=== PATIENT | female | born 1955 | race Caucasian/White ===

== ENCOUNTER 2017-09-14 19:36 | Inpatient (IN) | END 2017-09-19 19:10 | disposition home or self-care (01) | DRG 392 ==

== ENCOUNTER 2017-09-30 16:25 | Outpatient (CLI) | END 2017-09-30 16:42 | disposition home or self-care (01) ==

== ENCOUNTER 2018-09-25 01:33 | Emergency (ER) | payer OTHER ==
[~2018-09-25] VITALS: Ht 152.4 cm; Wt 57.7 kg
[~2018-09-25 01:33] MED LIST: BACL10TA PO; LEVE500T8 GTB
[2018-09-25 01:37] VITALS: BP 157/97; PULSE 85; RESP 16; Ht 152.4 cm; Wt 57.7 kg
[2018-09-25] MEDS ORDERED: HYDR-4011 PO (02:52)
[2018-09-25] MEDS ORDERED: NAPR-985 PO (02:52)
--- NOTE | 2018-09-25 02:59 | ERD ---
ER Documentation Chief Complaint Chief Complaint Pt has hx of arthritis and hands are hurting worse HPI This is a 63-year-old female with a history of arthritis, seizures, depression, who presents ED with complaints of worsening arthritic pain of the hands. Patient has an appointment scheduled with her primary care physician in 5 days. Patient states that she takes naproxen and [place] for her pain. Denies fever, chills, chest pain, shortness of breath, trouble breathing, nausea, vomiting, diarrhea, constipation, tingling, numbness, lack sensation in all other sympt oms. ROS All systems reviewed and are negative except as per history of present illness. Medications Home Meds Active Scripts Hydrocodone/Acetaminophen (Attica 5-325 Tablet) 1 Each Tablet, 1 TAB PO Q6H PRN for PAIN, #10 TAB Prov:MARY BRAR PA-C 09/25/18 Naproxen* (Naprosyn*) 500 Mg Tablet, 500 MG PO BID PRN for PAIN AND/OR INFLAMMATION, #30 TAB Prov:MARY BRAR PA-C 09/25/18 Baclofen* (Baclofen*) 10 Mg Tablet, 10 MG PO TID, #90 TAB Prov:SHERITA CISSE NP 09/19/17 Reported Medications Levetiracetam* (Levetiracetam*) 500 Mg Tablet, 1000 MG GTB BID, #360 09/14/17 Allergies Allergies: Coded Allergies: codeine (Verified Allergy, Unknown, 09/14/17) PMhx/Soc History of Surgery: Yes (HYSTERECTOMY) Anesthesia Reaction: No Hx Neurological Disorder: Yes (SEIZURE) Hx Respiratory Disorders: No Hx Cardiac Disorders: No Hx Psychiatric Problems: Yes (DEPRESSION) Hx Miscellaneous Medical Probl: Yes (pls see EMR) Hx Alcohol Use: Yes Hx Substance Use: No Hx Tobacco Use: No FmHx Family History: No diabetes Physical Exam Vitals Vital Signs Date Temp Pulse Resp B/P (MAP) Pulse Ox O2 O2 Flow FiO2 Time Delivery Rate 09/25/18 98.6 85 16 157/97 100 01:37 (117) Physical Exam Physical Exam Vitals signs: Reviewed by me. General: Well developed, well nourished, in no acute distress. Patient is awake and alert. Head: Normocephalic, atraumatic. Eyes: Normal conjunctiva, Pupils PERRLA, EOM intact grossly ENT: Pharynx is clear, Moist mucous membranes, external ears, nose and mouth normal Neck: Supple, no masses, lymphadenopathy or JVD Respiratory: Clear to auscultation bilaterally with no wheezing, rhonchi, rales, no distress Cardiovascular: RRR, no murmurs, rubs, or gallops MSK: No edema, no unilateral swelling, 5/5 strength, good oil gas and pipe tester strength Back: No midline tenderness. Neurologic: Alert and oriented, moving all extremities, normal speech, no focal weakness, no cerebellar signs. Normal mentation Skin: warm and dry, No rash Psych: Normal mood Results 24 hrs Current Medications Medications Dose Sig/Nile Start Time Status Last (Trade) Ordered Route PRN Stop Time Admin Dose Reason Admin 1 tab ONCE ONCE 09/25/18 Acetaminophen PO 03:00 / 09/25/18 03:01 Hydrocodone Bitart (Attica (5/325)) Naproxen 500 mg ONCE ONCE 09/25/18 (Naprosyn) PO 03:00 09/25/18 03:01 Procedures/MDM ER COURSE: The patient was given norco and naproxen The medication was well tolerated and the patient reports improvement in symptoms. The patient was stable throughout ED course. I kept the patient and/or family informed of laboratory and diagnostic imaging results throughout the emergency room course. The patient was promptly evaluated and a treatment plan was devised based on H&P and other data. This plan was discussed with the patient who agreed and had no further questions or concerns prior to discharge. MEDICAL DECISION MAKING: This is a 63-year-old female presents ED with complaints of worsening arthritic pain of the hands. Patient was given naproxen and Att[place] in the emergency department. I looked patient up in the [facility] database and the last refill of her pain medication that she got was on June 26, 2017. Patient has a appointment scheduled with her primary care physician in 5 days. Patient was given 10 pills of Attica as well as a refill of the naproxen. Patient was advised to follow-up with pain management. History and physical examination other data not consistent with emergent processes including but not limited to fracture, dislocation, tendon rupture, ischemia, neurovascular injury, compartment syndrome, septic joint, avascular necrosis, osteomyelitis, necrotizing fasciitis, septic joint, septic arthritis, or other emergent conditions. Patient's vitals are stable and can be managed outpatient with close follow-up. Advised patient to follow-up with primary care in the next 48 hours. Return to ED with any worsening symptoms. DISPOSITION PLAN: We discussed follow up with the patient's primary care doctor within 24 to 48 hours. Patient counseled regarding my diagnostic impression and care plan. Prior to discharge all questions answered. Pt agrees with treatment plan and understands strict return precautions. Precautionary instructions provided including instructions to return to the ER if not improving or for any worsening or changing symptoms or concerns. SPECIALIST FOLLOW UP RECOMMENDED: Pain management Patient has been advised to follow up with primary care in 1-2 days. Disclaimer: Inadvertent spelling and grammatical errors are likely due to EHR/dictation software use and do not reflect on the overall quality of patient care. Also, please note that the electronic time recorded on this note does not necessarily reflect the actual time of the patient encounter. Departure Diagnosis: Primary Impression: Pain, hand Laterality: bilateral Qualified Codes: M79.641 - Pain in right hand; M79.642 - Pain in left hand Condition: Stable Patient Instructions: What Is Arthritis? Referrals: KANU FELICIANO MD, ANTHONY Jr., MD SCHLESINGER, MARK P. MD [facility] YOU HAVE RECEIVED A MEDICAL SCREENING EXAM AND THE RESULTS INDICATE THAT YOU DO NOT HAVE A CONDITION THAT REQUIRES URGENT TREATMENT IN THE EMERGENCY DEPARTMENT. FURTHER EVALUATION AND TREATMENT OF YOUR CONDITION CAN WAIT UNTIL YOU ARE SEEN IN YOUR DOCTORS OFFICE WITHIN THE NEXT 1-2 DAYS. IT IS YOUR RESPONSIBILITY TO MAKE AN APPOINTMENT FOR FOLOW-UP CARE. IF YOU HAVE A PRIMARY DOCTOR --you should call your primary doctor and schedule an appointment IF YOU DO NOT HAVE A PRIMARY DOCTOR YOU CAN CALL OUR PHYSICIAN REFERRAL HOTLINE AT IF YOU CAN NOT AFFORD TO SEE A PHYSICIAN YOU CAN CHOSE FROM THE FOLLOWING [facility] CL[facility] [address] [place] [facility] [address] [facility]. [facility] [address] [facility] [address] [facility] [address] [facility] [address] Additional Instructions: Patient advised to return to the ED immediately for new or worsening symptoms. Patient advised to follow up with primary care provider in the next 24-48 hours. Patient verbalized understanding and agrees with treatment plan and course of action. If patient has no primary care they may follow up with one of the community clinics listed on the following page or one of the options listed below LOCATED WITHIN [facility] + [facility] [address] [place] [id number] or [facility] [address] [place] [address] [address] [facility] [address] [place] [address] MARY BRAR PA-C September 25, 2018 02:59
[2018-09-25] MEDS ORDERED: NAPROXEN 500 MG TAB PO ONE (03:00)
[2018-09-25] MEDS ORDERED: HYDROCODONE/APAP (5/325) TAB PO ONE (03:00)
== END 2018-09-25 03:32 | disposition home or self-care (01) ==
LOC: FTE 01:33
DX: M79.641 Pain in right hand (principal); M79.642 Pain in left hand
CPT/HCPCS: Z7502; Z7610; 99283